=== PATIENT | female | born 1995 | race Caucasian/White ===

== ENCOUNTER 2017-01-29 20:12 | Emergency (ER) | payer BC ==
[2017-01-29 20:23] VITALS: BP 122/77; PULSE 75; TEMP 97.7; BMI 25.8
--- NOTE | 2017-01-29 20:27 | PDOC ---
History of Present Illness - General Chief Complaint: Pain Stated Complaint: SUN CORI Time Seen by Provider: 01/29/17 20:24 History Source: Patient Exam Limitations: No Limitations - History of Present Illness Initial Comments: CHIEF COMPLAINT: 21 y/o afebrile female with no significant PMH c/o nausea and lightheaded since last night. HISTORY OF PRESENT ILLNESS: The patient states that she came back home from [facility] today with a bad sunburn on her shoulders, arms and chest. Her mom has been putting silvadene on the vides and she states that is not actually why she is here. She states since last night she's been lightheaded and nauseous. Her mom was concerned it may have something to do with the sunburn. She denies f/c , TOLBERT, neck pain, cough, v/d, CP, SOB, abd pain, back pain, hematuria, dysuria, eating anything abnormal, hemoptysis, calf pain. Vital signs on arrival are within normal limits. REVIEW OF SYSTEMS: GENERAL/CONSTITUTIONAL: No fever/chills. No weakness. No weight change. + lightheaded. GI: +nausea. No vomiting, diarrhea, constipation. MUSCULOSKELETAL: No joint or muscle swelling or pain. No neck or back pain. SKIN: +sunburn to chest, shoulders and upper back NEUROLOGIC: No headache, vertigo, loss of consciousness, or loss of sensation. PHYSICAL EXAM: GENERAL: The patient is awake, alert, and fully oriented, in no acute distress. She is well appearing and ambulatory. Mucous membranes moist. EXTREMITIES: Normal range of motion, no edema. NEUROLOGICAL: Normal speech, normal gait. CN II-XII grossly intact. SKIN: erythematous, raw skin in patches to anterior chest, b/l upper arms, b/l shoulders and upper back. Past History - Past Medical History Allergies/Adverse Reactions: Allergies Allergy/AdvReac Type Severity Reaction Status Date / Time No Known Allergies Allergy Verified 01/29/17 20:20 Home Medications: Ambulatory Orders Ibuprofen [Motrin -] 400 mg PO TID #20 tablet 11/24/12 Ondansetron [Zofran Odt -] 4 mg SL TID #6 od.tablet 01/29/17 Silver Sulfadiazine [Silvadene] 1 applic TP BID #1 can 01/29/17 - Psycho/Social/Smoking Cessation Hx Suicidal Ideation: No Smoking Status: No Smoking History: Never smoked Number of Cigarettes Smoked Daily: 0 Information on smoking cessation initiated: No Hx Alcohol Use: No Drug/Substance Use Hx: No Substance Use Type: None *Physical Exam - Vital Signs Last Vital Signs Temp Pulse Resp BP Pulse Ox 97.7 F 75 19 122/77 100 01/29/17 20:20 01/29/17 20:20 01/29/17 20:20 01/29/17 20:20 01/29/17 20:20 Medical Decision Making - Medical Decision Making A/P: 21 y/o afebrile female with lightheadedness and nausea since last night in [facility]. Also with 2nd degree sunburn to chest, shoulders and upper back. Concerned for dehydration. Plan is to check a UA. UA negative for ketones. hcg -negative Ordered sl yue Discussed the case with Dr. Burger. He feels the patient's symptoms are most likely from sunburn but IV fluids are not necessary since patient is tolerating PO fluids. WIll discharge to home wtih rx for silvadene and zofran. Suggested she stay out of the sun until healed, drink plenty of fluids and return to the ER with any worsening or concerning symptoms. The patient verbalizes understanding of all instructions, has no further questions and is awaiting discharge. *DC/Admit/Observation/Transfer Diagnosis at time of Disposition: Sunburn of second degree, Nausea - Discharge Dispostion Disposition: HOME Condition at time of disposition: Good - Prescriptions Prescriptions: Silver Sulfadiazine [Silvadene] 1 applic TP BID #1 can Ondansetron [Zofran Odt -] 4 mg SL TID #6 od.tablet - Referrals Referrals: Conner Ivy [Primary Care Provider] - - Patient Instructions Printed Discharge Instructions: DI for Sunburn Additional Instructions: Discharge Instructions: -Stay out of the sun until sunburn completely resolved -Apply silvadene twice a day to cleaned vides -Take zofran as prescribed if needed for nausea -Return to the ER with any worsening or concerning symptoms
[2017-01-29 20:48] LABS: URINE APPEARANCE CLEAR; URINE BILIRUBIN NEGATIVE (NEGATIVE); URINE COLOR LTYELLOW; URINE GLUCOSE (UA) NEGATIVE (NEGATIVE); URINE KETONE NEGATIVE (NEGATIVE); URINE LEUK ESTERASE NEGATIVE (NEGATIVE); URINE NITRITE NEGATIVE (NEGATIVE); URINE PROTEIN NEGATIVE (NEGATIVE); URINE UROBILINOGEN NEGATIVE mg/dL (0.2-1.0)
[2017-01-29 20:53] LABS: URINE BLOOD 2+ (NEGATIVE)
[2017-01-29 20:55] LABS: URINE BACTERIA RARE /hpf (NONE SEEN); URINE MUCUS RARE; URINE RBC 3 /hpf (0-3); URINE WBC 1 /hpf (3-5)
[2017-01-29] MEDS ORDERED: ONDANSETRON *ODT* 4 MG TABLET SL ONE (21:02)
[2017-01-29] MEDS ORDERED: ONDANSETRON *ODT* 4 MG TABLET ONE (21:03)
== END 2017-01-29 21:10 | disposition home or self-care (01) ==
LOC: JERFT 20:12
DX: L55.1 Sunburn of second degree (principal)
CPT/HCPCS: 81003; 81015; 84703; 99281-25